=== PATIENT | female | born 1975 | race Caucasian/White ===

== ENCOUNTER 2017-05-15 16:08 | Emergency (ER) | payer OTHER ==
[~2017-05-15] VITALS: Ht 165.1 cm; Wt 59.0 kg
[~2017-05-15 16:08] MED LIST: ADV500/50; VALIUM5 MG PO; XOPENEX0.63 MG/3 IH
[2017-05-15 16:14] VITALS: BP 143/83; Ht 165.1 cm; Wt 59.0 kg
== END 2017-05-15 19:05 | disposition left against medical advice (07) ==
LOC: ED 16:08
DX: Z53.21 Procedure and treatment not carried out due to patient leaving prior to being seen by health care provider (principal)

== ENCOUNTER 2017-05-16 13:20 | Emergency (ER) | payer OTHER ==
[~2017-05-16] VITALS: Ht 162.6 cm; Wt 63.3 kg
[2017-05-16 15:03] VITALS: BP 111/59
== END 2017-05-16 15:03 | disposition home or self-care (01) ==
LOC: ED 13:20
DX: S30.0XXA Contusion of lower back and pelvis, initial encounter (principal); X58.XXXA Exposure to other specified factors, initial encounter; Y93.89 Activity, other specified; Y92.89 Other specified places as the place of occurrence of the external cause; Y99.8 Other external cause status

== ENCOUNTER 2019-01-02 11:33 | Emergency (ER) | payer OTHER ==
[~2019-01-02] VITALS: Ht 167.6 cm; Wt 54.4 kg
[2019-01-02 12:02] VITALS: Ht 167.6 cm; Wt 54.4 kg
[2019-01-02 13:33] LABS: BASOPHIL % 0.7 % (0-2); PLATELET COUNT 248 x10^3mcL (130-400); RED CELL DISTRIBUTION WIDTH 13.5 % (11.5-14.5)
[2019-01-02 13:34] LABS: CALCIUM 9.2 mg/dL (8.5-10.1); CARBON DIOXIDE 27.9 mmol/L (21-32); CHLORIDE SERUM 105 mmol/L (98-107); CREATININE SERUM 0.8 mg/dL (0.6-1.0); GFR1 > 60 mL/min; GLUCOSE SERUM 95 mg/dL (74-106); POTASSIUM SERUM 4.4 mmol/L (3.5-5.1); SODIUM SERUM 140 mmol/L (136-145)
[2019-01-02 13:37] LABS: microscopic required? YES; urine erythrocyte 1+ (NEGATIVE)
[2019-01-02 13:39] LABS: ALBUMIN 3.7 g/dL (3.4-5.0); ALKALINE PHOSPHATASE 60 U/L (46-116); ALT/SGPT 26 U/L (14-59); AST/SGOT 25 U/L (15-37); BILIRUBIN TOTAL 0.26 mg/dL (0.20-1.00); LIPASE 100 IU/L (73-393); TOTAL PROTEIN, SERUM 7.6 g/dL (6.4-8.2)
[2019-01-02 18:06] VITALS: BP 111/59
== END 2019-01-02 18:40 | disposition home or self-care (01) ==
LOC: ED 11:33
PROVIDERS: Student in an Organized Health Care Education/Training Program
DX: K59.00 Constipation, unspecified (principal); J45.909 Unspecified asthma, uncomplicated; Z98.890 Other specified postprocedural states; Z88.1 Allergy status to other antibiotic agents; Z90.710 Acquired absence of both cervix and uterus
CPT/HCPCS: J1630; J2270; J2405; J3010; J7030; Q0162; Q9967